=== PATIENT | female | born 1960 ===

== ENCOUNTER 2022-04-10 16:45 | Emergency (ER) | payer BC ==
[2022-04-10] MEDS ORDERED: Phenazopyridine 95 MG Tab PO ONE ×2 (16:46→18:34)
[2022-04-10] MEDS ORDERED: Phenazopyridine 95 MG Tab ONE (20:07)
== END 2022-04-10 20:08 | disposition home or self-care (01) ==
LOC: DL.ED 16:45
DX: N13.2 Hydronephrosis with renal and ureteral calculous obstruction (principal); E11.9 Type 2 diabetes mellitus without complications; E03.9 Hypothyroidism, unspecified; Z86.16 Personal history of COVID-19; Z79.82 Long term (current) use of aspirin; Z79.899 Other long term (current) drug therapy
CPT/HCPCS: 74176; 81001; 99284; A9270